=== PATIENT | male | born 1990 | race African-American/Black ===

== ENCOUNTER 2017-02-17 14:45 | Emergency (ER) | payer SELFPAY ==
[~2017-02-17] VITALS: Ht 172.7 cm; Wt 104.3 kg
[2017-02-17] MEDS ORDERED: ONDANSETRON HCL 4 MG/2 ML VIAL IV ONE (15:30)
[2017-02-17] MEDS ORDERED: HYDROmorphone HCL 2 MG/ML VL IV ONE (15:30)
[2017-02-17] MEDS ORDERED: HYDROcodone-ACET 10/325MG TAB PO ONE (16:45)
[2017-02-17 16:53] VITALS: BP 139/73
== END 2017-02-17 16:43 | disposition home or self-care (01) ==
LOC: ER 14:51
DX: S00.03XA Contusion of scalp, initial encounter (principal); S70.02XA Contusion of left hip, initial encounter; S40.011A Contusion of right shoulder, initial encounter; V28.0XXA Motorcycle driver injured in noncollision transport accident in nontraffic accident, initial encounter; Y93.89 Activity, other specified; Y99.8 Other external cause status; Y92.89 Other specified places as the place of occurrence of the external cause
CPT/HCPCS: 70450; 71250; 72125; 73030; 73130; 73502; 74176